=== PATIENT | female | born 1990 | race Caucasian/White ===

== ENCOUNTER 2021-04-06 03:49 | Outpatient (CLI) | payer BC, SELFPAY ==
[2021-04-06 15:22] LABS: Kit/Specimen SENT
[2021-04-06 16:10] LABS: Abs Immature Grans 0.03 10^3/uL (0.0-0.06); Absolute Basophil Count 0.06 10^3/uL (0.0-0.2); Absolute Eosinophil Count 0.17 10^3/uL (0.0-0.7); Absolute Lymphocyte Count 3.15 10^3/uL (1.2-3.4); Absolute Monocyte Count 0.52 10^3/uL (0.1-0.8); Absolute Neutrophil Count 6.56 10^3/uL (1.2-6.7); Basophils % 0.6; Eosinophils % 1.6; HCT 34.5 % (36.0-46.0); HGB 11.8 g/dL (11.2-15.7); Immature Grans % 0.3; MCH 30.8 pg (27.0-33.0); MCHC 34.2 % (32.0-36.0); MCV 90.1 fL (80-95); MPV 9.2 fL (8.0-11.0); Neutrophils % 62.5; Nucleated RBC 0 %; Platelet Count 208 10^3/uL (130-400); RBC 3.83 10^6/uL (3.93-5.22); RDW 12.7 % (11.7-14.6); RDW-SD 41.5 fL; WBC 10.49 10^3/uL (4.4-10.8)
[2021-04-06 18:00] LABS: *AMPHETAMINES SCREEN URINE Negative (Negative); *BARBITURATES SCREEN URINE Negative (Negative); *BENZODIAZEPINES SCREEN URINE Negative (Negative); Cannabinoids THC Negative (Negative); Cocaine Screen,Urine Negative (Negative); METHADONE URINE SCREEN Negative (Negative); OPIATES URINE SCREEN Negative (Negative)
[2021-04-06 18:54] LABS: Tricyclic Antidepressants Negative (Negative)
[2021-04-06 20:37] LABS: TSH (W/Ref FT4) 2.11 uIU/mL (0.36-3.74)
[2021-04-08 09:50] LABS: Hepatitis B Surface Ag Negative (Negative)
[2021-04-08 10:48] LABS: Hepatitis C Ab w Rflx HCV PCR Negative (Negative)
[2021-04-08 10:54] LABS: Varicella IgG Antibody Positive (See Note)
[2021-04-08 10:58] LABS: Rubella IgG Ab (UVM) Positive (See Note)
[2021-04-08 10:59] LABS: HIV-1/2 Ag & Ab Screen Negative (Negative)
[2021-04-08 15:02] LABS: Syphilis Total Ab w/Reflex Nonreactive (Nonreactive)
[2021-04-12 12:19] LABS: Specimen WB Whole Blood
[2021-04-12 14:15] LABS: Buprenorphine Negative ng/mL (Cutoff: 5.0); Norbuprenorphine Negative ng/mL (Cutoff: 2.5)
[2021-04-12 16:34] LABS: Result Summary NEGATIVE; Specimen WB Whole Blood
== END 2021-04-06 03:50 | disposition home or self-care (01) ==
LOC: LBO 03:50
PROVIDERS: PCP Nurse Practitioner; Visit Provider Advanced Practice Midwife
DX: Z34.91 Encounter for supervision of normal pregnancy, unspecified, first trimester (principal)
CPT/HCPCS: 36415; 80307; 81329; 86787; 86803; 86850; 86900; 86901; 87340; 87389; 81220; 84443; 85025; 86762; 86780; 87086

== ENCOUNTER 2021-05-03 16:54 | Outpatient (REF) | payer BC, SELFPAY ==
[2021-05-05 13:38] LABS: Chlamydia Result Negative (Negative); GC Result Negative (Negative)
== END 2021-05-03 16:55 | disposition home or self-care (01) ==
LOC: LBN 16:54
PROVIDERS: PCP Nurse Practitioner; Visit Provider Advanced Practice Midwife
DX: Z34.92 Encounter for supervision of normal pregnancy, unspecified, second trimester (principal); Z11.3 Encounter for screening for infections with a predominantly sexual mode of transmission; Z3A.15 15 weeks gestation of pregnancy
CPT/HCPCS: 87491; 87591

== ENCOUNTER 2021-05-04 03:59 | Outpatient (CLI) | payer BC, SELFPAY ==
[2021-05-06 14:11] LABS: AFP 45.4 ng/mL; Cigarette smoking status non-Smoker; GA used in risk estimate Dates estimate; IVF Pregnancy No; Initial or repeat testing Initial testing; Insulin dependent diabetes No; Maternal Weight 146 lbs; Number of Fetuses 1; Physician Phone Number 802-748-7300; Results Summary Normal risk
== END 2021-05-04 04:00 | disposition home or self-care (01) ==
LOC: LBO 03:59
PROVIDERS: PCP Nurse Practitioner; Visit Provider Advanced Practice Midwife
DX: Z34.92 Encounter for supervision of normal pregnancy, unspecified, second trimester (principal)
CPT/HCPCS: 36415; 82105

== ENCOUNTER 2021-07-27 01:45 | Outpatient (CLI) | payer BC, SELFPAY ==
[2021-07-27 10:27] LABS: HCT 34.6 % (36.0-46.0); HGB 11.9 g/dL (11.2-15.7); MCH 30.7 pg (27.0-33.0); MCHC 34.4 % (32.0-36.0); MCV 89.4 fL (80-95); MPV 9.3 fL (8.0-11.0); Platelet Count 171 10^3/uL (130-400); RBC 3.87 10^6/uL (3.93-5.22); RDW 13.1 % (11.7-14.6); RDW-SD 42.5 fL; WBC 10.49 10^3/uL (4.4-10.8)
[2021-07-27 10:32] LABS: Glucose,1 Hr (Glucola) 131 mg/dL (80-140)
== END 2021-07-27 01:46 | disposition home or self-care (01) ==
LOC: LBO 01:45
PROVIDERS: PCP Nurse Practitioner; Visit Provider Advanced Practice Midwife
DX: Z34.92 Encounter for supervision of normal pregnancy, unspecified, second trimester (principal); Z3A.27 27 weeks gestation of pregnancy
CPT/HCPCS: 36415; 82950; 85027

== ENCOUNTER 2021-09-27 17:30 | Outpatient (REF) | payer BC, SELFPAY ==
[2021-09-27 18:35] LABS: *AMPHETAMINES SCREEN URINE Negative (Negative); *BARBITURATES SCREEN URINE Negative (Negative); *BENZODIAZEPINES SCREEN URINE Negative (Negative); Cannabinoids THC Negative (Negative); Cocaine Screen,Urine Negative (Negative); METHADONE URINE SCREEN Negative (Negative); OPIATES URINE SCREEN Negative (Negative)
[2021-09-27 18:38] LABS: Tricyclic Antidepressants Negative (Negative)
[2021-10-04 14:04] LABS: Buprenorphine Negative ng/mL (Cutoff: 5.0); Norbuprenorphine Negative ng/mL (Cutoff: 2.5)
== END 2021-09-27 17:31 | disposition home or self-care (01) ==
LOC: LBN 17:30
PROVIDERS: PCP Nurse Practitioner; Visit Provider Advanced Practice Midwife
DX: Z34.93 Encounter for supervision of normal pregnancy, unspecified, third trimester (principal); Z36.85 Encounter for antenatal screening for Streptococcus B; Z3A.36 36 weeks gestation of pregnancy
CPT/HCPCS: 80307; 87081

== ENCOUNTER 2021-09-27 17:58 | Outpatient (REF) | payer BC, SELFPAY | END 2021-09-27 17:59 | disposition home or self-care (01) | LOC: LBN 17:58 | PROVIDERS: PCP Nurse Practitioner; Visit Provider Advanced Practice Midwife ==

== ENCOUNTER 2021-10-18 10:15 | Inpatient (IN) | payer BC, SELFPAY ==
[2021-10-18] VITALS (140 sets, daily range): BP systolic 84–141; BP diastolic 50–87; PULSE 68–138; RESP 12–18; TEMP 36.7–37.3; O2SAT 77–99; BMI 30.1
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
[2021-10-18 11:53] LABS: HCT 37.8 % (36.0-46.0); HGB 12.8 g/dL (11.2-15.7); MCH 30.8 pg (27.0-33.0); MCHC 33.9 % (32.0-36.0); MCV 91 fL (80-95); Platelet Count 154 10^3/uL (130-400); RBC 4.16 10^6/uL (3.93-5.22); RDW 13.2 % (11.7-14.6); RDW-SD 43.4 fL; WBC 13.06 10^3/uL (4.4-10.8)
[2021-10-18 12:02] LABS: Source Nasal/Nares
[2021-10-18 12:41] LABS: COVID-19 PCR Negative (Negative)
--- NOTE | 2021-10-18 15:27 | W.PM.OBNL1 ---
Date of service: 10/18/21 Time of Service: 15:27 Pelvic Exam Dilation: 6 Effacement (%): 100 station: 0 Consistency: soft Contractions Monitor Mode: External Contraction Frequency(min): every 3-4 Contraction Duration(sec): 60 Intensity: Moderate/Strong Fetus A Monitor: External (US) Heart Rate Baseline: 130 Presentation: Vertex Variability: Moderate (6-25 BPM) Categories: Category I FHR Rhythm: Regular Accelerations: 15 X 15 Decelerations: None Amniotic Membrane Status: Intact Assessment and Plan Assessment and plan (1) Spontaneous onset of labor: Status: Acute Assessment and plan: Discussed pain relief options. eduardo would like to try th etub and nubain 10 mg SC was ordered for relaxation. Anticipate Objective Abnormal lab results 10/18/21 Range/Units 11:43 WBC 13.06 H (4.4-10.8) 10^3/uL Temp Pulse Resp BP 98.8 F 68 12 88/52 L 10/18/21 10:41 10/18/21 10:43 10/18/21 10:41 10/18/21 10:43 Laboratory Results WBC 13.06 10^3/uL (4.4-10.8) H 10/18/21 11:43 RBC 4.16 10^6/uL (3.93-5.22) 10/18/21 11:43 Hgb 12.8 g/dL (11.2-15.7) 10/18/21 11:43 Hct 37.8 % (36.0-46.0) 10/18/21 11:43 MCV 91 fL (80-95) 10/18/21 11:43 MCH 30.8 pg (27.0-33.0) 10/18/21 11:43 MCHC 33.9 % (32.0-36.0) 10/18/21 11:43 RDW 13.2 % (11.7-14.6) 10/18/21 11:43 Plt Count 154 10^3/uL (130-400) 10/18/21 11:43 MPV 10.0 fL (8.0-11.0) 10/18/21 11:43 COVID-19 Source Nasal/Nares 10/18/21 11:50 SARS-CoV-2 (PCR) Negative (Negative) 10/18/21 11:50 Patient ABO/Rh A Positive 10/18/21 11:43 Antibody Screen NEGATIVE 10/18/21 11:43 Subjective Interval history since last seen: Eduardo has been using nitrous oxide for comfort with fair effect. She is experiencing back pain with contractions. Results Hemoglobin/Hematocrit: Hgb 12.8 g/dL (11.2-15.7) 10/18/21 11:43 Hct 37.8 % (36.0-46.0) 10/18/21 11:43 Abnormal Lab Findings: Abnormal Labs 10/18/21 11:43 WBC 13.06 H
[2021-10-18] MEDS: Nalbuphine 10 MG/ML AMP SC (15:36)
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
--- NOTE | 2021-10-18 19:26 | W.ANESNEU ---
Epidural/Spinal Catheter Date Performed: 10/18/21 Procedure Start: 19:12 Procedure Stop: 19:20 Requesting Provider: July Forde Procedure Location: Obstetrics Reason Performed: Labor Epidural Standard Monitors Applied: ECG, Blood Pressure and SpO2 Patient Position: Sitting Sedation Given (Indicate Dose Given): No Sedation given Patient Mental Status: Awake Sterility: Hand Hygiene Procedure Location: L4-L5 Interspace Epidural Needle: Tuohy 17 Guage Needle Length: 3.5 Inch Needle Approach: Midline Epidural Procedure: Skin Prepped, Sterile Drape Placed, 1% Lidocaine to skin and subcutaneous tissue with 25G needle, ASHLEY to Saline Used and Epidural Catheter Placed (wire reinforced. ) Catheter Placed?: Catheter Placed Test Dose (Indicate Dose Given): 3ml 1.5% Lidocaine with 1:200K Epinephrine Given and Negative Test Dose Loss of Resistance Depth (cm): 7 Catheter depth at skin (cm): 12 Dressing: Sorbaview Dressing Placed Epidural Provider Bolus (Indicate Dose Given): Total Ropivacaine 0.1% with Fentanyl 2mcg/ml Given from pump. (ml) (7 mL + 4 mL. ) Dose:: 12 mL Additives (Indicate Dose Given ): None Infusion Medication: Medication Infusion Began Medication Infusion: Ropivacaine 0.1% with Fentanyl 2mcg/ml Maintenance Infusion Rate (ml/hour): 10 PCEA Bolus Dose (ml): 5 Block Level: N/A Paresthesia: None Ultrasound: Used to joshua site Number of Attempts (See previous attempts in note section): 1 Procedure Tolerated: No Complications Procedure Outcome: Successful Procedure Comment:: Good effect. pt much more comfortable post. still uncomfortable, but states much better. Denies hot spots, feel the same bilaterally. educated on PCEA function. Performed By: Mik Nogueira
--- NOTE | 2021-10-18 19:58 | W.PM.OBNL1 ---
Date of service: 10/18/21 Time of Service: 19:58 Pelvic Exam Dilation: 7 Effacement (%): 100 station: 0 Cervix Position: mid Consistency: soft Comments: AROM performed for light meconium stained fluid. Contractions Monitor Mode: External Contraction Frequency(min): every 3-4 Contraction Duration(sec): 60 Intensity: Moderate/Strong Fetus A Monitor: External (US) Heart Rate Baseline: 120 Presentation: Vertex Variability: Moderate (6-25 BPM) Categories: Category I FHR Rhythm: Regular Characteristics: Normal Accelerations: 15 X 15 Decelerations: None Amniotic Membrane Status: Ruptured Rupture Method: Artifical Amniotic Fluid: Meconium Assessment and Plan Assessment and plan (1) Spontaneous onset of labor: Status: Acute Assessment and plan: Good relief with epidural. Category 1 tracing. Rest encouraged. Consider augmentation of labor if necessary. Anticipate Objective Abnormal lab results 10/18/21 Range/Units 11:43 WBC 13.06 H (4.4-10.8) 10^3/uL Temp Pulse Resp BP Pulse Ox 98.1 F 96 H 18 99/58 L 96 10/18/21 18:03 10/18/21 19:58 10/18/21 18:03 10/18/21 19:55 10/18/21 19:56 Laboratory Results WBC 13.06 10^3/uL (4.4-10.8) H 10/18/21 11:43 RBC 4.16 10^6/uL (3.93-5.22) 10/18/21 11:43 Hgb 12.8 g/dL (11.2-15.7) 10/18/21 11:43 Hct 37.8 % (36.0-46.0) 10/18/21 11:43 MCV 91 fL (80-95) 10/18/21 11:43 MCH 30.8 pg (27.0-33.0) 10/18/21 11:43 MCHC 33.9 % (32.0-36.0) 10/18/21 11:43 RDW 13.2 % (11.7-14.6) 10/18/21 11:43 Plt Count 154 10^3/uL (130-400) 10/18/21 11:43 MPV 10.0 fL (8.0-11.0) 10/18/21 11:43 COVID-19 Source Nasal/Nares 10/18/21 11:50 SARS-CoV-2 (PCR) Negative (Negative) 10/18/21 11:50 Patient ABO/Rh A Positive 10/18/21 11:43 Antibody Screen NEGATIVE 10/18/21 11:43 Subjective Interval history since last seen: Natali used the tub and nitrous oxide and received nubain 10 mg with good effect. She reports fatigue and epidural was requested. Results Hemoglobin/Hematocrit: Hgb 12.8 g/dL (11.2-15.7) 10/18/21 11:43 Hct 37.8 % (36.0-46.0) 10/18/21 11:43 Abnormal Lab Findings: Abnormal Labs 10/18/21 11:43 WBC 13.06 H
[2021-10-19] VITALS (64 sets, daily range): BP systolic 95–145; BP diastolic 50–68; PULSE 64–150; RESP 16–18; TEMP 36.6–37.5; O2SAT 93–98
--- NOTE | 2021-10-19 00:23 | W.PM.OBNL1 ---
Date of service: 10/19/21 Time of Service: 00:24 Pelvic Exam Dilation: 10 Contractions Monitor Mode: External Contraction Frequency(min): every 3-4 Intensity: Moderate/Strong Fetus A Monitor: External (US) Heart Rate Baseline: 145 Presentation: Vertex Variability: Minimal (1-5 BPM) Categories: Category II FHR Rhythm: Regular Accelerations: 10 X 10 Decelerations: Variable Recurrence: Recurrent Assessment and Plan Assessment and plan (1) Spontaneous onset of labor: Status: Acute Assessment and plan: at this time, Natali is on her left side and resting with occasional closed leg bearing down. She has been pushing her patient controlled epidural device and she was encouraged to try not to push it to increase her urge to push. Objective Abnormal lab results 10/18/21 Range/Units 11:43 WBC 13.06 H (4.4-10.8) 10^3/uL Temp Pulse Resp BP Pulse Ox 99.1 F 87 18 108/62 95 10/18/21 23:27 10/19/21 00:21 10/18/21 18:03 10/19/21 00:18 10/19/21 00:21 Laboratory Results WBC 13.06 10^3/uL (4.4-10.8) H 10/18/21 11:43 RBC 4.16 10^6/uL (3.93-5.22) 10/18/21 11:43 Hgb 12.8 g/dL (11.2-15.7) 10/18/21 11:43 Hct 37.8 % (36.0-46.0) 10/18/21 11:43 MCV 91 fL (80-95) 10/18/21 11:43 MCH 30.8 pg (27.0-33.0) 10/18/21 11:43 MCHC 33.9 % (32.0-36.0) 10/18/21 11:43 RDW 13.2 % (11.7-14.6) 10/18/21 11:43 Plt Count 154 10^3/uL (130-400) 10/18/21 11:43 MPV 10.0 fL (8.0-11.0) 10/18/21 11:43 COVID-19 Source Nasal/Nares 10/18/21 11:50 SARS-CoV-2 (PCR) Negative (Negative) 10/18/21 11:50 Patient ABO/Rh A Positive 10/18/21 11:43 Antibody Screen NEGATIVE 10/18/21 11:43 Subjective Interval history since last seen: Natali received an epidural and rested well. She was examined at 2130 and was 10 cms dilated/ +1 station and she began pushing. She pushed in various positions including squatting and hands and knees with slow descent noted. The baselne FHR was 120s with recurrent variable decelerations noted with pushing and average variability. Dr Dowd was notified of meconium stained fluid and variable decelerations and is currently in house. I notified Dr. Long at 2345 of Natali's progress as well as the variable decelerations. Caput was visible with pushing at the introitus at the time that I called Dr. Long at 2345. Natali requested a break from pushing and she moved to her left side and is now bearing down intermittently. FHR baseline is now at 145-150 with occasional variable decelerations which are occasionally down to 80s and minimal to average variability. Will plan to try some other positions and notify Dr. Long if variable decelerations persist. Consideer operative delivery if variables persist and consider labor augmentation if indicated. Pitocin hs been ordered but will hold at this time to assess the heart rate pattern. Results Hemoglobin/Hematocrit: Hgb 12.8 g/dL (11.2-15.7) 10/18/21 11:43 Hct 37.8 % (36.0-46.0) 10/18/21 11:43 Abnormal Lab Findings: Abnormal Labs 10/18/21 11:43 WBC 13.06 H
[2021-10-19] MEDS: Oxytocin/Normal Saline 30 UNIT/500 ML BAG 2 UNITS IV (00:34)
--- NOTE | 2021-10-19 01:00 | PLAC_PTH ---
PATIENT: Natali Sheth LOC: OBS U#:[id number] AGE/SX: 31/F ROOM: OBS.303 RE10/18/[address]: July Forde : 1990 BED: A DIS: 10/20/2021 SPEC #: [id number] RECD: 10/19/21 12:01 STATUS: ASHLEY REQ #: [id number] LINDA: 10/19/21 01:[address]: July Forde DEPT: Surgical Specimen RECD BY: Trice Muro ENTERED: 10/19/21 12:03 SP TYPE: PLAC OTHR DR: Maame Rowe Tissues: 1 - PLACENTA (NOT 3RD TRIMESTER) Procedures: GROSS AND MICRO LEVEL 5 Comments: [id number]
--- NOTE | 2021-10-19 01:47 | OBVDS_ITS ---
Date of service: 10/19/21 Time of Service: 01:47 OB Labor/ Delivery Information Baby A Delivery Delivery Method: Spontaneaous Presentation: Vertex Cephalic Position: Vertex Vertex Position: Right Occipital Posterior Amniotic Fluid: Meconium Estimated Blood Loss: 250 Delivery Outcome: Liveborn Complications: none Infant Transferred: Remains with Mother Note: FHTs 120s during first stage of labor with occasional variable decelerations. FHTs 120-140 in second stage with recurrent variable decelerations with contractions. Second stage huddle was done at at initiation of pushing and 2 hours. I notified Mercedes Marte after 2 1/4 hours of pushing of slow progress and variable decelerations. The variable decelerations became deeper and Natali was encouraged to push with her knees in flexion. She pushed well with encouragement and had a spontaneous delivery of a male infant delivered in ROP position. Baby was placed on mother's abdomen and dried and stimulated. Spontaneous cry. Cord was clamped and cut by the RN after it stopped pulsing. The placenta delivered spontaneously and appears to by intact with a three vessel cord. It had a short cord and a marginal insertion and was sent to pathology for examination. Pitocin 30 units IV was administered after delivery of the placenta. The baby did attempt to breastfeed but did not show rooting signals. After delivery, Mother and baby and father of the baby were stable and bonding well in the delivery room and there were no complications. His name is Danna. Natali's temp was 100.5 immediately after delivery but came down to 99.2 an hour after delivery. Dr. Dowd present for delivery due to meconium stained fluid and variable decelerations and she assessed the baby after the cord was cut. Providers Nurse Field Project Manager: July Forde Nurse: Yeny Voss Nurse: Shara Rose Labor/Delivery Information Number of Babies in Womb: 1 Steroids Given: None Reason Steroids Not Administered: N/A Group Beta Strep: Negative Antibiotics Administered: No Rubella Status: Immune Blood Type: A+ Varicella Immunity: Immune Shoulder Dystocia: No Stages of Labor Onset of Labor Date: 10/18/21 Onset of Labor Time: 07:30 Complete Dilatation Date: 10/18/21 Complete Dilatation Time: 21:23 Labor - Stage 1 Duration: 0 minutes ROM Baby A: 10/18/21 ROM Baby A: 18:23 Infant Delivery Date-Baby A: 10/19/21 Infant Delivery Time-Baby A: 00:49 Labor Stage 2 Duration: 3 hours and 26 minutes Placenta Delivery Date-Baby A: 10/19/21 Placenta Delivery Time-Baby A: 00:53 Labor-Stage 3 Duration: 4 minutes Total Length of Labor-Baby A: 17 hours and 19 minutes Placenta Status: Delivered Baby A Infant Gender: Male Gestational Status: Term (39-41.6 wks) Gestational Age in Weeks/Days: 39 Weeks and 6 Days Score-1 Minute Interval(Baby A) Heart Rate-1 minute: 100 BPM or Greater Respiratory Effort- 1 minute: Slow Respiration/Weak Cry Muscle Tone-1 minute: Active Movement Reflex Response-1 minute: Prompt Response Color-1 minute: Bluish Hands or Feet Total Score-1 minute: 8 Score-5 Minute Interval(Baby A) Heart Rate- 5 minute: 100 BPM or Greater Respiratory Effort-5 minute: Spontaneous/Strong Cry Muscle Tone-5 minute: Active Movement Reflex Response-5 minute: Prompt Response Color-5 minute: Bluish Hands or Feet Total Score- 5 minute: 9 Interventions Repair of Laceration Type: Perineal (abrasion) and Periurethral, Sponge Count Correct: No Sponges Placed in Vagina, Sharp Count Correct: Yes. Laceration Repair Note: The perineum was inspected and a superficial perineal abrasion was repaired with 2 interrupted sutures. A small hematoma was noted at the perineum and was not actively bleeding. A right perineal laceration was repaired with interrupted 4-0 vicryl sutures under local anesthetic.
[2021-10-19] MEDS: Ibuprofen 600 MG TAB PO ×3 (02:26→15:52)
[2021-10-19] MEDS: Dibucaine 1% 28 GM TUBE TP ×2 (02:26→15:53)
[2021-10-19] MEDS: Acetaminophen 325 MG TAB 650 MG PO ×3 (02:26→15:53)
[2021-10-19] MEDS: Hamamelis Leaf/Glycerin 100 EACH BOX PR (02:26)
[2021-10-19] MEDS: Sertraline 100 MG TAB PO (09:30)
--- NOTE | 2021-10-19 16:04 | W.ANESPOSTOP ---
Postoperative Evaluation Date, Time and Location Date Performed: 10/19/21 Time Performed: 16:04 Patient Location: Obstetrics Vital Signs Most Recent Imported Vital Signs: Most Recent Vital Signs Temp Pulse Resp BP Pulse Ox 36.6 C 75 16 97/66 L 97 10/19/21 15:25 10/19/21 15:25 10/19/21 15:25 10/19/21 15:25 10/19/21 15:25 Pain Score Most Recent Pain Score: Most Recent Pain Score Pain Level [Abdomen] 4 10/19/21 15:25 Pain Level 4 10/19/21 15:53 Assessment Mental Status: Awake (Alert & Oriented to Patient Baseline) Airway and Respiratory Function: Patent airway with normal (patient baseline) respiratory exam Cardiovascular Function: Hemodynamically Stable Hydration Status: Adequately Hydrated Nausea & Vomiting: No Nausea or Vomiting Pain: Pain is tolerable per patient (being treated by OB RN with PO medications) Peripheral Nerve Block: Other (Epidural appropriately resolved, denied complaint, denied headache, denied backpain. Per RN catheter removed with tip intact. Site with dressing clean dry and intact.)
--- NOTE | 2021-10-20 07:07 | W.PM.OBPNV1 ---
Date of service: 10/20/21 Time of Service: 07:07 Assessment and Plan Assessment and plan (1) Term delivered: Status: Acute Assessment and plan: A: Nml PPD#1 off to a slow start with poor or intermittent latch Pumping with slowly increasing yield, occ blood tinge to milk Chronic depression well controlled with sertraline 100 mg qd P: Pt desires discharge when baby is released per Peds Planning POP's for BCM F/up at 2 & 6 wks Continue support via Peds office after discharge Subjective Subjective Patient comments: No complaints, Pain well controlled, Tolerating diet and Flatus present Patient's Mood: tired, happy [place] baby status: Doing well, Rooming in and Strong Bonding Observed [place] feeding status: Exclusively breast feeding and [place] Feeding Exam Physical Exam Vital signs: Temp Pulse Resp BP Pulse Ox 98.1 F 71 18 103/65 97 10/19/21 19:53 10/19/21 19:53 10/19/21 19:53 10/19/21 19:53 10/19/21 19:53 Vital Signs Reviewed: Yes Constitutional Constitutional: no acute distress HEENT Exam HEENT Exam: Normal Neck Exam Neck Exam: Normal Breast Exam Bilateral: Breast Exam: Normal and Soft Nipple Exam: Normal and Uninjured Comments: drops of blood sometimes come from right nipple and color the colostrum red or pink, but no nipple injury or pain Respiratory Exam Respiratory Exam: Normal Cardiovascular Exam Cardiovascular Exam: Normal Abdominal Exam Abdomen: Other (soft, nontender) Fundal Exam Fundus: Below Umbilicus and Firm Rectal Exam Rectal Exam: Normal Exam Perineum: Bruising and Intact Comments: visibly resolving left labial bruise Extremities Exam Extremity Exam: Normal, Full ROM, Normal Capillary Refill and Warm to Touch Back/Spine/Pelvis Exam Back Exam: Normal Skin Exam Skin Exam: Normal Neurological Exam Neurological Exam: Normal Psychiatric Exam Psychiatric Exam: Normal Results Hemoglobin/Hematocrit: Hgb 12.8 g/dL (11.2-15.7) 10/18/21 11:43 Hct 37.8 % (36.0-46.0) 10/18/21 11:43
[2021-10-20 08:05] VITALS: BP 116/79; PULSE 71; RESP 16; TEMP 36.9
[2021-10-20] MEDS: Sertraline 100 MG TAB PO (11:40)
[2021-10-20] MEDS: Acetaminophen 325 MG TAB 650 MG PO (11:40)
[2021-10-20] MEDS: Ibuprofen 600 MG TAB PO (11:41)
[2021-10-20] MEDS: Docusate Sodium 100 MG CAP PO (11:42)
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
== END 2021-10-20 13:35 | disposition home or self-care (01) | DRG 807 ==
LOC: OBS 15:53
PROVIDERS: Admitting Provider Advanced Practice Midwife; PCP Nurse Practitioner; Visit Provider Advanced Practice Midwife
DX: O99.344 Other mental disorders complicating childbirth (principal); Z37.0 Single live birth; Z3A.39 39 weeks gestation of pregnancy; F32.A Depression, unspecified; O76 Abnormality in fetal heart rate and rhythm complicating labor and delivery; O77.0 Labor and delivery complicated by meconium in amniotic fluid; O69.3XX0 Labor and delivery complicated by short cord, not applicable or unspecified
CPT/HCPCS: 85027; 86850; 86900; 86901; 87635; 88305; 88307; G0378; J3490

== ENCOUNTER 2021-12-06 15:34 | Outpatient (REF) | payer BC, SELFPAY ==
--- NOTE | 2021-12-06 14:45 | PAPFT_PTH ---
PATIENT: Natali Sheth LOC: [facility] U#:[id number] AGE/SX: 31/F ROOM: RE12/06/[address]: July Forde : 1990 BED: DIS: 12/06/2021 SPEC #: [id number] RECD: 12/06/21 17:25 STATUS: ASHLEY REKeith #: [id number] LINDA: 12/06/21 14:[address]: July Forde DEPT: [facility], [facility] Cytology RECD BY: Queenie Storey ENTERED: 12/06/21 17:25 SP TYPE: PAPFT OTHR DR: Maame Rowe Tissues: 1 - CX/ENDOCX FOR PAP SMEARS Procedures: PAP THIN PREP/UVM Screening HPV DNA PROBE Comments: [id number]
== END 2021-12-06 15:35 | disposition home or self-care (01) ==
LOC: LBN 15:34
PROVIDERS: PCP Nurse Practitioner; Visit Provider Advanced Practice Midwife
DX: Z11.51 Encounter for screening for human papillomavirus (HPV) (principal)
CPT/HCPCS: 88142; 87624

== ENCOUNTER 2023-08-03 10:02 | Outpatient (REF) | payer BC, SELFPAY ==
[2023-08-04 14:12] LABS: Chlamydia Result Negative (Negative); GC Result Negative (Negative)
== END 2023-08-03 10:03 | disposition home or self-care (01) ==
LOC: LBN 10:02
PROVIDERS: PCP Nurse Practitioner; Visit Provider Obstetrics & Gynecology
DX: Z11.3 Encounter for screening for infections with a predominantly sexual mode of transmission (principal)
CPT/HCPCS: 87491; 87591